=== PATIENT | male | born 1955 | race Caucasian/White ===

== ENCOUNTER 2022-06-27 08:31 | Outpatient (CLI) | payer OTHER, MEDICAID, SELFPAY ==
[2022-06-27 12:53] LABS: Albumin* 4.3 g/dL (3.3-5.0); Chloride* 106 mmol/L (96-114)
[2022-06-27 12:54] LABS: Potassium* 5.3 mmol/L (3.6-5.1); Sodium* 139 mmol/L (135-149)
[2022-06-27 12:56] LABS: Alanine Aminotransferase* 26 U/L (4-50); Alkaline Phosphatase* 93 U/L (40-150); Aspartate Amino Transferase* 32 U/L (12-35); Bilirubin Total* 1.2 mg/dL (0.1-1.5); Blood Urea Nitrogen* 20 mg/dL (7-30); Carbon Dioxide* 28 mmol/L (20-32); Cholesterol* 202 mg/dL (90-199); Creatinine* 0.9 mg/dL (0.5-1.5); Estimated Glomerular Filt Rate 95 ml/min; Glucose* 84 mg/dL (60-115); Total Protein* 6.8 g/dL (6.0-8.3)
[2022-06-27 12:57] LABS: Calcium* 9.2 mg/dL (8.4-10.6); HDL Cholesterol* 54 mg/dL (>=40); LDL Cholesterol Calculated 117 mg/dL (<100); Triglycerides* 153 mg/dL (40-149)
[2022-06-27 13:23] LABS: PSA Screen* 0.48 ng/mL (0.10-4.00)
== END 2022-06-27 08:32 | disposition home or self-care (01) ==
PROVIDERS: PCP Internal Medicine; Visit Provider Internal Medicine
DX: Z00.00 Encounter for general adult medical examination without abnormal findings (principal); Z13.6 Encounter for screening for cardiovascular disorders; Z12.5 Encounter for screening for malignant neoplasm of prostate
CPT/HCPCS: 80053; 80061; 84153

== ENCOUNTER 2025-05-14 10:25 | Outpatient (CLI) | payer MEDICARE, SELFPAY | END 2025-05-14 10:26 | disposition home or self-care (01) | LOC: NFLDREF 05-19 12:01 | PROVIDERS: PCP Internal Medicine; Referring Provider Internal Medicine; Visit Provider Internal Medicine | DX: Z13.9 Encounter for screening, unspecified (principal) | CPT/HCPCS: 80053; 80061; G0103 ==